=== PATIENT | male | born 1950 | race Caucasian/White ===

== ENCOUNTER 2017-03-31 02:54 | Emergency (ER) | payer OTHER ==
[2017-03-31 03:20] VITALS: BP 145/91; TEMP 96.6; BMI 34.8
[2017-03-31 03:44] LABS: BASOPHILS # (AUTO) 0.1 K/uL (0-0.2); BASOPHILS % (AUTO) 0.7 % (0.0-3.0); EOSINOPHILS # (AUTO) 0.2 K/ul (0.0-0.7); EOSINOPHILS % (AUTO) 1.9 % (0.0-7.0); HEMATOCRIT 43.2 % (42.0-52.0); HEMOGLOBIN 15.2 g/dl (14.0-18.0); IMMATURE GRANULOCYTE % (AUTO) 0.4 % (0.0-5.0); LYMPHOCYTES # (AUTO) 1.3 K/uL (0.60-3.4); LYMPHOCYTES % (AUTO) 15.9 (10.0-50.0); MEAN CORPUSCULAR HEMOGLOBIN 30.4 pg (27.0-31.0); MEAN CORPUSCULAR HGB CONC 35.2 (31.8-35.4); MEAN CORPUSCULAR VOLUME 86.4 fl (80.0-94.0); MONOCYTES # (AUTO) 0.8 K/uL (0.4-2.0); MONOCYTES % (AUTO) 9.7 (0-10); NEUTROPHILS # (AUTO) 5.9 K/ul (2.0-6.9); NEUTROPHILS % (AUTO) 71.4; PLATELET COUNT 238 10^3/uL (140-440); WHITE BLOOD COUNT 8.29 K/ul (4.2-10.2)
--- NOTE | 2017-03-31 03:44 | ED.PDOC ---
General ED Provider: Dr. JADYN QUEZADA Chief Complaint: Diarrhea Stated Complaint: Patient is trying to quite the clonazepam, finally he did it on the last saturday, ever since he is been having diarrhea, 3-4 times per day. cramps and shakyness. no recent antibiotics. no recent travel Time Seen by Physician: 03:42 Mode of Arrival: Walk-In Information Source: Patient Primary Care Provider: [facility] Nursing and Triage Documentation Reviewed and Agree: Yes GI Complaint Exam - Vomiting/Diarrhea Complaint/Exam Symptoms Are: Still present Episodes of Diarrhea Over Last 24 Hours: 4 Initial Severity: Mild Current Severity: Mild Character of Diarrhea: Reports: Watery Aggravating: Reports: None Alleviating: Reports: None Associated Signs and Symptoms: Reports: Cramping. Denies: Dizziness, Light- headedness, Melena, Hematemesis, Fever, Abdominal pain Non-GI Risk Factors: Reports: None Surgical Obstruction Risk Factors: Reports: None Related Surgical History: Reports: None Abdominal Findings: Absent: Pulsatile mass, Abdominal distention, Unequal femoral pulses Differential Diagnoses: Viral Gastroenteritis, Bacterial Gastroenteritis, Other (withdrawals) Review of Systems - Review Of Systems Constitutional: Reports: No symptoms Eyes: Reports: No symptoms Ears, Nose, Mouth, Throat: Reports: No symptoms Respiratory: Reports: No symptoms Cardiac: Reports: No symptoms GI: Reports: Diarrhea : Reports: No symptoms Musculoskeletal: Reports: No symptoms Skin: Reports: No symptoms Neurological: Reports: No symptoms Endocrine: Reports: No symptoms Hematologic/Lymphatic: Reports: No symptoms All Other Systems: Reviewed and Negative Past Medical History - Past Medical History Previously Healthy: Yes Endocrine: Reports: None Cardiovascular: Reports: None Respiratory: Reports: None Hematological: Reports: None Gastrointestinal: Reports: None Genitourinary: Reports: None Neuro/Psych: Reports: Anxiety, Depression Musculoskeletal: Reports: Arthritis, Back Pain, Other (RA) Cancer: Reports: None - Surgical History General Surgical History: Reports: None - Family History Family History: Reports: None - Social History Smoking Status: Former smoker Hx Substance Use: No Alcohol Screening: None - Immunizations Tetanus Shot up to Date: No Physical Exam - Physical Exam Appearance: Well-appearing, No pain distress, Well-nourished Eyes: COURTNEY, EOMI, Conjunctiva clear ENT: Ears normal, Nose normal, Oropharynx normal Respiratory: Airway patent, Breath sounds clear, Breath sounds equal, Respirations nonlabored Cardiovascular: RRR, Pulses normal, No rub, No murmur GI/: Soft, Nontender, No masses, Bowel sounds normal, No Organomegaly Musculoskeletal: Normal strength, ROM intact, No edema, No calf tenderness Skin: Warm, Dry, Normal color Neurological: Sensation intact, Motor intact, Reflexes intact, Cranial nerves intact, Alert, Oriented Psychiatric: Affect appropriate, Mood appropriate Critical Care Note - Critical Care Note Total Time (mins): 0 Course - Course Hematology/Chemistry: 03/31/17 03:30 Orders, Labs, Meds: Lab Review 03/31/17 03:30 WBC 8.29 RBC 5.00 Hgb 15.2 Hct 43.2 MCV 86.4 MCH 30.4 MCHC 35.2 RDW Coeff of Kayla 13.4 Plt Count 238 Immature Gran % (Auto) 0.4 Neut % (Auto) 71.4 Lymph % (Auto) 15.9 [place] % (Auto) 9.7 Eos % (Auto) 1.9 Baso % (Auto) 0.7 Immature Gran # (Auto) 0.0 Neut # 5.9 Lymph # 1.3 [place] # 0.8 Eos # 0.2 Baso # 0.1 Orders Category Date Time Status CBC W/ AUTO DIFF Stat LAB 03/31/17 03:30 Completed COMPREHENSIVE METABOLIC PANEL Stat LAB 03/31/17 03:30 Received OVA AND PARASITES EXAM Stat LAB 03/31/17 03:34 Uncollected STOOL CULTURE Stat LAB 03/31/17 Ordered Vital Signs: Temp Pulse Resp BP Pulse Ox 03/31/17 02:58 96.6 F L 81 24 145/91 H 97 Departure - Departure Time of Disposition: 04:03 Disposition: HOME SELF-CARE Discharge Problem: Diarrhea Instructions: Dehydration (ED), Gastroenteritis (ED) Condition: Stable Pt referred to PMD for follow-up: Yes Additional Instructions: Increase hydration probiotics Imodium prn If not better come back. Prescriptions: Metronidazole [Flagyl] 500 mg PO Q8HR #30 tablet Loperamide HCl [Imodium] 2 mg PO LOOSE STOOL PRN PRN #10 tablet PRN Reason: Diarrhea Allergies/Adverse Reactions: Allergies No Known Drug Allergies Adverse Reaction (Verified 03/31/17 03:08) Home Medications: Ambulatory Orders Ascorbic Acid [Vitamin C] 1,000 mg PO DAILY 03/31/17 Cholecalciferol (Vitamin D3) [Vitamin D3] 2,000 unit PO DAILY 03/31/17 Citalopram Hydrobromide [Citalopram HBr] 10 mg PO DAILY 03/31/17 Hydrocodone/Acetaminophen [Hydrocodon-Acetaminophen 5-325] 2 tab PO Q6H PRN Hydroxychloroquine Sulfate [Plaquenil] 200 mg PO DAILY 03/31/17 Latanoprost [Xalatan] 1 drop OP BEDTIME 03/31/17 Loperamide HCl [Imodium] 2 mg PO LOOSE STOOL PRN PRN #10 tablet 03/31/17 Magnesium Oxide [Magnesium] 250 mg PO DAILY 03/31/17 Metronidazole [Flagyl] 500 mg PO Q8HR #30 tablet 03/31/17 Phenylephrine HCl [Jennifer-Med 0.25% Supp] 1 supp RC BID PRN 03/31/17 Disposition Discussed With: Patient, Family
[2017-03-31 04:03] LABS: ALBUMIN 4.2 g/dL (3.4-5.0); ALBUMIN/GLOBULIN RATIO 1.62; BILIRUBIN,TOTAL 0.67 mg/dL (0.00-1.20); BUN/CREATININE RATIO 11.36; CALCIUM 8.9 mg/dL (8.2-10.2); CREATININE 1.32 mg/dL (0.60-1.10); TOTAL PROTEIN 6.8 g/dL (5.8-8.1)
== END 2017-03-31 04:34 | disposition home or self-care (01) ==
LOC: ED 02:54
DX: R19.7 Diarrhea, unspecified (principal); E86.0 Dehydration; Z79.899 Other long term (current) drug therapy
CPT/HCPCS: 36415; 80053; 85025; 87015; 87045; 87177; 87899; 99282

== ENCOUNTER 2017-10-06 06:38 | Emergency (ER) ==
[2017-10-06 06:50] VITALS: BP 129/67; TEMP 96.9; BMI 33.5
--- NOTE | 2017-10-06 07:07 | ED.PDOC ---
General ED Provider: Dr. MELANY PRABHAKAR-ER Chief Complaint: Cough Stated Complaint: samantha been coughing with runny nose for 2 days Time Seen by Physician: 07:05 Mode of Arrival: Walk-In Information Source: Patient Exam Limitations: No limitations Primary Care Provider: ATTILA LOZANO Nursing and Triage Documentation Reviewed and Agree: Yes Reviewed sepsis parameters & appropriate labs ordered?: Yes System Inflammatory Response Syndrome: Not Applicable Sepsis Protocol: For patient's 13 years and over: Temp is 96.8 and below OR 101 and greater Pulse >90 BPM Resp >20/minute Acutely Altered Mental Status Are patient's symptoms suggestive of a new infection, such as: -Pneumonia -Skin, Soft Tissue -Endocarditis -UTI -Bone, Joint Infection -Implantable Device -Acute Abdominal Infection -Wound Infection -Meningitis -Blood Stream Catheter Infection -Unknown Respiratory Complaint Exam - Respiratory Complaint/Exam Onset/Duration: 2 days Symptoms Are: Still present Timing: Intermittent Initial Severity: Mild Current Severity: Mild Location: Nose, Chest Character: Reports: Non-productive cough Aggravating: Reports: URI Alleviating: Reports: None Associated Signs and Symptoms: Reports: URI, Nasal congestion. Denies: Rapid breathing, Dyspnea, Fever, Chills, Chest pain, Pleuritic chest pain, Wheezing, Hemoptysis, Dizziness, Calf pain, Calf swelling, Edema, Hoarseness, Sinus discomfort, Vomiting, Sore throat, Weight loss, Decreased oral intake, Increased thirst, Increased appetite, Increased urination History of Healthcare-Acquired Pneumonia: No Home Oxygen Use: No Recent Stress Test: No Recent Echo/LV Function: No Current Antibiotic Use: No Current Asthma Medication Use: No Respiratory Distress: None Inadequate Respiratory Effort: No Dysphagia Present: No Stridor Present: No JVD Present: No Accessory Muscle Use: No Retractions: Not Present Diminished Breath Sounds: No Sinus Tenderness: None Grunting Respirations: No Kussmaul Respirations: No Differential Diagnoses: Bronchitis, URI, Influenza Review of Systems - Review Of Systems Constitutional: Reports: No symptoms Eyes: Reports: No symptoms Ears, Nose, Mouth, Throat: Reports: Nose discharge Respiratory: Reports: Cough Cardiac: Reports: No symptoms GI: Reports: No symptoms : Reports: No symptoms Musculoskeletal: Reports: No symptoms Skin: Reports: No symptoms Neurological: Reports: No symptoms Endocrine: Reports: No symptoms Hematologic/Lymphatic: Reports: No symptoms All Other Systems: Reviewed and Negative Past Medical History - Past Medical History Previously Healthy: Yes Endocrine: Reports: None Cardiovascular: Reports: None Respiratory: Reports: None Hematological: Reports: None Gastrointestinal: Reports: None Genitourinary: Reports: None Neuro/Psych: Reports: Anxiety, Depression Musculoskeletal: Reports: Arthritis, Back Pain, Other (RA) Cancer: Reports: None - Surgical History General Surgical History: Reports: None - Family History Family History: Reports: None - Social History Smoking Status: Former smoker Hx Substance Use: No Alcohol Screening: None Lives: With family - Immunizations Tetanus Shot up to Date: Yes Physical Exam - Physical Exam Appearance: Well-appearing, No pain distress, Well-nourished Eyes: COURTNEY, EOMI, Conjunctiva clear ENT: Rhinorrhea Neck: Supple Respiratory: Rhonchi Cardiovascular: RRR GI/: Soft, Nontender, No masses, Bowel sounds normal, No Organomegaly Musculoskeletal: Normal strength, ROM intact, No edema, No calf tenderness Skin: Warm, Dry, Normal color Neurological: Sensation intact Psychiatric: Affect appropriate, Mood appropriate Critical Care Note - Critical Care Note Total Time (mins): 0 Course - Course Orders, Labs, Meds: Lab Review 10/06/17 06:50 Influenza A (Rapid) Negative by naat Influenza B (Rapid) Negative by naat Orders Category Date Time Status FLU A & B MOLECULAR [FLU A/B MOLECULAR] Stat LAB 10/06/17 06:50 Completed Vital Signs: Temp Pulse Resp BP Pulse Ox 10/06/17 06:42 96.9 F L 88 20 129/67 98 Departure - Departure Time of Disposition: 07:36 Disposition: HOME SELF-CARE Discharge Problem: Bronchitis Instructions: Acute Bronchitis (ED) Condition: Good Pt referred to PMD for follow-up: Yes IPMP verified?: No Additional Instructions: zpack, mdp, tessalon perles 200mg tid prn cough 30---see pmd in 48hrs if not improving Allergies/Adverse Reactions: Allergies No Known Drug Allergies Adverse Reaction (Verified 10/06/17 06:50) Home Medications: Ambulatory Orders Ascorbic Acid [Vitamin C] 1,000 mg PO DAILY 03/31/17 Cholecalciferol (Vitamin D3) [Vitamin D3] 2,000 unit PO DAILY 03/31/17 Citalopram Hydrobromide [Citalopram HBr] 40 mg PO DAILY 03/31/17 Hydroxychloroquine Sulfate [Plaquenil] 200 mg PO DAILY 03/31/17 Latanoprost [Xalatan] 1 drop OP BEDTIME 03/31/17 Phenylephrine HCl [Jennifer-Med 0.25% Supp] 1 supp RC BID PRN 03/31/17 Disposition Discussed With: Patient
== END 2017-10-06 07:50 | disposition home or self-care (01) ==
LOC: ED 06:38
DX: J40 Bronchitis, not specified as acute or chronic (principal); R05 Cough
CPT/HCPCS: 87502; 99283